=== PATIENT | female | born 1970 | race Caucasian/White ===

== ENCOUNTER 2019-09-09 16:31 | Emergency (ER) | payer MEDICAID ==
[~2019-09-09] VITALS: Ht 182.9 cm; Wt 80.5 kg
[2019-09-09] MEDS ORDERED: HYDROcodone/APAP 5/325 TABLET PO PRN (17:00)
[2019-09-09] MEDS ORDERED: HYDROcodone/APAP 5/325 TABLET ONE (17:08)
--- NOTE | 2019-09-09 17:12 | NUR ---
PT ARRIVED WITH RIGHT ARM IN SLING WITH C/O RIGHT UPPER ARM, ELBOW PAIN. MEDICATED FOR SAME. DENIES LIGHTHEADEDNESS AT THIS TIME.
--- NOTE | 2019-09-09 18:07 | NUR ---
SLING FROM EMS REMOVED FROM RIGHT ARM AND PLACED IN HOSP SLING
[2019-09-09 19:07] VITALS: BP 122/76
== END 2019-09-09 19:09 | disposition home or self-care (01) ==
LOC: ED 19:00
DX: S42.201A Unspecified fracture of upper end of right humerus, initial encounter for closed fracture (principal); W18.30XA Fall on same level, unspecified, initial encounter; Y93.89 Activity, other specified; Y92.009 Unspecified place in unspecified non-institutional (private) residence as the place of occurrence of the external cause; Y99.8 Other external cause status
CPT/HCPCS: 93005; 99283